=== PATIENT | male | born 1930 | race Two or more races ===

== ENCOUNTER 2020-05-12 18:35 | Inpatient (IN) | payer OTHER, MEDICAID ==
[~2020-05-12] VITALS: Ht 162.6 cm; Wt 85.3 kg
[2020-05-12] MEDS ORDERED: POTA20TA83 PO (19:10)
[2020-05-12] MEDS ORDERED: HYDR25TA4 PO (19:10)
[2020-05-12] MEDS ORDERED: LOSA50TA39 PO (19:10)
[2020-05-12] MEDS ORDERED: OMEP20CA15 PO (19:10)
[2020-05-12] MEDS ORDERED: ATOR20TA PO (19:10)
[2020-05-12 20:03] LABS: BASOPHILS % (AUTO) 0.3 % (0.0-2.0); EOSINOPHILS % (AUTO) 0.1 % (0.0-6.0); HEMATOCRIT 32 % (39-51); HEMOGLOBIN 10.5 g/dL (13.5-17.5); LYMPHOCYTES # (AUTO) 1.3 /CMM (0.8-4.8); LYMPHOCYTES % (AUTO) 13.7 % (20.0-44.0); MEAN CORPUSCULAR HGB CONC 33 g/dl (31.0-36.0); MEAN CORPUSCULAR VOLUME 92 fL (80-96); MONOCYTES # (AUTO) 1.1 /CMM (0.1-1.30); MONOCYTES % (AUTO) 10.9 % (2.0-12.0); NEUTROPHILS # (AUTO) 7.3 /CMM (1.8-8.9); PLATELET COUNT (AUTO) 171 /CMM (150-450); RED BLOOD CELL COUNT(AUTO) 3.47 MIL/uL (4.5-6.0); WHITE BLOOD COUNT (AUTO) 9.8 K/uL (4.3-11.0)
--- NOTE | 2020-05-12 20:04 | NUR ---
[id number], from home, c/o weakness since july. PT AAOX3, VSS. RR EVEN & UNLABORED. DENIES CP, SOB, DIZZINESS, N/V AT THIS TIME. PT SEEN & EVAL'D BY DR. OLIVER. PLACED ON DRUPAL ARCHITECT, SR. WILL CONT TO MONITOR.
--- NOTE | 2020-05-12 20:07 | NUR ---
PT TO CT VIA [facility].
[2020-05-12 20:15] LABS: CALCIUM, SERUM 8.3 mg/dL (8.5-10.1); CREATININE 1.1 mg/dL (0.6-1.3); POTASSIUM 4.2 mmol/L (3.5-5.1)
[2020-05-12 20:21] LABS: ALBUMIN 2.9 g/dL (3.4-5.0); BILIRUBIN,DIRECT 0.5 mg/dL (0.0-0.2); BILIRUBIN,TOTAL 1.3 mg/dL (0.2-1.0); TOTAL PROTEIN, SERUM 7.2 g/dL (6.4-8.2)
--- NOTE | 2020-05-12 22:00 | NUR ---
REPORT RECEIVED FROM ROSSI GAR FOR KENIA
--- NOTE | 2020-05-12 22:29 | NUR ---
Call from lab. Rapid covid negative.
[2020-05-12] MEDS ORDERED: ASPIRIN EC 325 MG TABLET.DR PO ONE ×2 (22:37→23:00)
--- NOTE | 2020-05-12 22:41 | NUR ---
PT AAOX3, VSS, RESPIRATIONS EVEN AND UNLABORED ON RA W/ NAD NOTED. PT CONNECTED TO THE TRIAL ATTORNEY AND POX.PT DENIES HT. PT DENIES KO.
[2020-05-13] VITALS (7 sets, daily range): BP systolic 113–141; BP diastolic 50–58
[2020-05-13] MEDS ORDERED: ONDANSETRON HCL/PF 4 MG/2 ML VIAL IVP PRN (02:00)
[2020-05-13] MEDS ORDERED: Z GUARD REMEDY 2 OZ OINT TP PRN (02:00)
[2020-05-13] MEDS ORDERED: MAGNESIUM HYDROXIDE 30 ML UDC PO PRN (02:00)
[2020-05-13] MEDS ORDERED: ACETAMINOPHEN 325 MG TABLET PO PRN (02:00)
[2020-05-13] MEDS ORDERED: MAG HYDROX/AL HYDROX/SIMETH 30 ML UDC PO PRN (02:00)
--- NOTE | 2020-05-13 02:23 | NUR ---
ATTEMPTED TO GIVE REPORT, NURSE NOT AVAILABLE
--- NOTE | 2020-05-13 02:38 | NUR ---
REPORT GIVEN TO ROSSI BOWLES FOR KENIA
[2020-05-13 05:38] LABS: BASOPHILS % (AUTO) 0.4 % (0.0-2.0); EOSINOPHILS % (AUTO) 0.5 % (0.0-6.0); HEMATOCRIT 28 % (39-51); HEMOGLOBIN 9.2 g/dL (13.5-17.5); LYMPHOCYTES # (AUTO) 1.7 /CMM (0.8-4.8); LYMPHOCYTES % (AUTO) 18.9 % (20.0-44.0); MEAN CORPUSCULAR HGB CONC 33 g/dl (31.0-36.0); MEAN CORPUSCULAR VOLUME 91 fL (80-96); MONOCYTES # (AUTO) 1.2 /CMM (0.1-1.30); MONOCYTES % (AUTO) 12.8 % (2.0-12.0); NEUTROPHILS # (AUTO) 6.2 /CMM (1.8-8.9); NEUTROPHILS % (AUTO) 67.4 % (43.0-81.0); PLATELET COUNT (AUTO) 151 /CMM (150-450); RED BLOOD CELL COUNT(AUTO) 3.07 MIL/uL (4.5-6.0); WHITE BLOOD COUNT (AUTO) 9.2 K/uL (4.3-11.0)
[2020-05-13 05:53] LABS: ALBUMIN 2.4 g/dL (3.4-5.0); BILIRUBIN,TOTAL 1.1 mg/dL (0.2-1.0); CALCIUM, SERUM 7.8 mg/dL (8.5-10.1); CREATININE 1.1 mg/dL (0.6-1.3); MAGNESIUM 1.3 mg/dL (1.8-2.4); PHOSPHORUS 3.1 mg/dL (2.5-4.9); POTASSIUM 3.7 mmol/L (3.5-5.1)
[2020-05-13 06:00] LABS: THYROID STIMULATING HORMONE 1.355 uIU/mL (0.358-3.74)
[2020-05-13] MEDS: ENOXAPARIN SODIUM 40 MG/0.4 ML DISP.SYRIN SQ SCH (06:51)
--- NOTE | 2020-05-13 07:46 | NUR ---
MS RN NOTE PATIENT IN BED RESTING COMFORTABLY. PATIENT IN NO ACUTE DISTRESS. NO SOB NOTED. PATIENT BREATHING IS EVEN AND UNLABORED. PATIENT BED ALARM IS ON. PATIENT SAFETY PRECAUTIONS IN PLACE. PATIENT BED IS LOCKED AND IN LOWEST POSITION. CALL LIGHT WITHIN REACH. WILL CONTINUE TO MONITOR.
[2020-05-13] MEDS: PANTOPRAZOLE 40 MG TABLET.DR PO SCH (08:52)
[2020-05-13] MEDS: POTASSIUM CHLORIDE 20 MEQ TAB.PRT.SR PO SCH (08:52)
[2020-05-13] MEDS: HYDROCHLOROTHIAZIDE 25 MG TABLET PO SCH (08:53)
[2020-05-13] MEDS: LOSARTAN POTASSIUM 50 MG TABLET PO SCH (08:53)
[2020-05-13] MEDS: Magnesium 1GM/D5W 100ML PREMIX 100 ML IV SCH ×2 (09:43→11:00)
--- NOTE | 2020-05-13 18:41 | NUR ---
MS RN CLOSING NOTE PATIENT IS IN BED RESTING COMFORTABLY. PATIENT IS IN NO ACUTE DISTRESS. NO SOB NOTED. PATIENTS BREATHING IS EVEN AND UNLABORED. PATIENT KEPT CLEAN AND DRY, COMFORTABLE THROUGHOUT THE SHIFT. PATIENT STATES NO PAIN AT THIS TIME. NEEDS AND CONCERNS ADDRESSED. PATIENTS BED IS LOCKED AND AT THE LOWEST POSITION, CALL LIGHT WITHIN REACH. ENDORSE TO THE TECHNICAL SERVICES SPECIALIST NURSE FOR KENIA.
--- NOTE | 2020-05-13 19:10 | NUR ---
RN MS OPENING NOTES RECEIVED PATIENT IN BED AWAKE ALERT AND ORIENTED X 3-4, RESPIRATIONS EVEN AND UNLABORED WITH EQUAL RISE AND FALL OF CHEST, DENIES ANY PAIN OR DISCOMFORT AT THIS TIME, IV SITE TO RIGHT FA # 20G INTACT AND PATENT, NO REDNESS, NO INFILTRATION PRESENT, ORIENTED TO STAFF AND CALL LIGHT AND KEPT WITHIN REACH LOW BED AND LOCKED, ALL NEEDS ATTENDED AT THIS TIME, REMAINS COMFORTABLE WILL CONTINUE TO MONITOR AND ATTEND TO NEEDS. BED ALARM IN PLACE, REMINDED NOT TO GET UP UNASSISTED AND USE CALL LIGHT.
--- NOTE | 2020-05-13 21:41 | NUR ---
rn ms notes patient refused medication states he takes it in the morning not at this time, despite education patient still refused,
[2020-05-13] MEDS ORDERED: ATORVASTATIN 10 MG TABLET PO SCH (22:00)
--- NOTE | 2020-05-14 06:34 | NUR ---
RN MS CLOSING NOTES PATIENT IN BED AWAKE ALERT AND ORIENTED X 2, NOTED EPISODE OF FORGETFULNESS AND CONFUSION AT NIGHT AND MORE ALERT TOWARDS THE MORNING. REDIRECTABLE, RESPIRATIONS EVEN AND UNLABORED WITH EQUAL RISE AND FALL OF CHEST, DENIES ANY PAIN OR DISCOMFORT AT THIS TIME, IV SITE TO RIGHT FA # 22G INTACT AND PATENT, NO REDNESS, NO INFILTRATION PRESENT, ORIENTED TO STAFF AND CALL LIGHT AND KEPT WITHIN REACH LOW BED AND LOCKED, ALL NEEDS ATTENDED AT THIS TIME, REMAINS COMFORTABLE WILL CONTINUE TO MONITOR AND ATTEND TO NEEDS. BED ALARM IN PLACE, REMINDED NOT TO GET UP UNASSISTED AND USE CALL LIGHT. WILL ENDORSE TO NEXT SHIFT.
[2020-05-14 08:00] VITALS: BP 127/76
--- NOTE | 2020-05-14 08:00 | NUR ---
m/s warehouse consultant: initial assessment received pt in bed awake, a/ox3. no c/o pain or any discomfort. afebrile. vss. will continue to monitor.
[2020-05-14] MEDS: PANTOPRAZOLE 40 MG TABLET.DR PO SCH (08:16)
[2020-05-14] MEDS: HYDROCHLOROTHIAZIDE 25 MG TABLET PO SCH (08:16)
[2020-05-14] MEDS: LOSARTAN POTASSIUM 50 MG TABLET PO SCH (08:16)
[2020-05-14] MEDS: POTASSIUM CHLORIDE 20 MEQ TAB.PRT.SR PO SCH (08:16)
[2020-05-14] MEDS: ENOXAPARIN SODIUM 40 MG/0.4 ML DISP.SYRIN SQ SCH (08:17)
[2020-05-14 08:20] LABS: BASOPHILS % (AUTO) 0.3 % (0.0-2.0); HEMATOCRIT 29 % (39-51); HEMOGLOBIN 9.7 g/dL (13.5-17.5); LYMPHOCYTES # (AUTO) 1.1 /CMM (0.8-4.8); LYMPHOCYTES % (AUTO) 11.1 % (20.0-44.0); MEAN CORPUSCULAR HGB CONC 33 g/dl (31.0-36.0); MEAN CORPUSCULAR VOLUME 92 fL (80-96); MONOCYTES # (AUTO) 1.2 /CMM (0.1-1.30); NEUTROPHILS # (AUTO) 7.5 /CMM (1.8-8.9); NEUTROPHILS % (AUTO) 76.6 % (43.0-81.0); PLATELET COUNT (AUTO) 169 /CMM (150-450); WHITE BLOOD COUNT (AUTO) 9.8 K/uL (4.3-11.0)
[2020-05-14 08:31] LABS: CALCIUM, SERUM 8.2 mg/dL (8.5-10.1); MAGNESIUM 1.8 mg/dL (1.8-2.4); PHOSPHORUS 3.1 mg/dL (2.5-4.9); POTASSIUM 3.9 mmol/L (3.5-5.1)
--- NOTE | 2020-05-14 09:00 | NUR ---
m/s pathology laboratory director: neuro consult received new orders from dr. castillo. orders acknowledged.
[2020-05-14 10:42] LABS: THYROID STIMULATING HORMONE 1.183 uIU/mL (0.358-3.74)
--- NOTE | 2020-05-14 11:00 | NUR ---
m/s quantitative researcher: md visit seen and examined by dr. wallace with order to discharge home with home health. order acknowledged. pt aware. sayra (camilo) to make arrangement. will continue to monitor.
--- NOTE | 2020-05-14 12:30 | NUR ---
m/s steam brush operator: notes having lunch at this time. instructed to call for assistance. for d'c planning home, pt lives alone. offered snf placement, but pt refuses. will continue to monitor.
--- NOTE | 2020-05-14 14:00 | NUR ---
m/s operator command support systems: notes pt will call his friend instead of his son to pick him up as stated. pt's phone is getting charge, unable to remember his friend's number.
--- NOTE | 2020-05-14 15:00 | NUR ---
m/s gauge maker: notes discharge instructions given to pt and verbalized understanding. h/l removed with tip intact. pt called zenon (friend) to pick him up.
--- NOTE | 2020-05-14 15:56 | NUR ---
m/s rubber goods finisher: discharged discharged home accompanied by zenon (friend) via private car in stable condition with all valuables.
[2020-05-14 16:00] VITALS: BP 109/59
== END 2020-05-14 15:45 | disposition home health service (06) | DRG 73 ==
LOC: ER 18:46 → OBSER 05-13 01:47 → OBSVTOIN 05-13 01:47 → MED 05-13 02:12
PROVIDERS: ADMIT Registered Nurse; ATTEND Registered Nurse
DX: G61.81 Chronic inflammatory demyelinating polyneuritis (principal); E43 Unspecified severe protein-calorie malnutrition; E87.2 Acidosis; Z86.73 Personal history of transient ischemic attack (TIA), and cerebral infarction without residual deficits; K21.9 Gastro-esophageal reflux disease without esophagitis; R54 Age-related physical debility; I10 Essential (primary) hypertension; M19.90 Unspecified osteoarthritis, unspecified site; Z95.0 Presence of cardiac pacemaker; E78.5 Hyperlipidemia, unspecified; Z79.899 Other long term (current) drug therapy; W19.XXXA Unspecified fall, initial encounter; Y92.9 Unspecified place or not applicable; M47.812 Spondylosis without myelopathy or radiculopathy, cervical region; R29.6 Repeated falls
CPT/HCPCS: 36415; 70450-TC; 72125-TC; 73502; 80048-TC; 80053-TC; 80061-TC; 80076-TC; 82140-TC; 82550-TC; 83605-TC; 83735-TC; 84100-TC; 84425; 84443-TC; 84484-TC; 85025-TC; 85652-TC; 85730-TC; 87081-TC; 93307-TC; 93880-TC; 97112-TC; 97530-TC; C9803; G0378; J1650; J3475; J7050